=== PATIENT | male | born 1975 | race American Indian/Alaskan Native ===

== ENCOUNTER 2017-08-01 13:03 | Emergency (ER) | payer OTHER ==
[2017-08-01 13:08] VITALS: BP 160/102
[2017-08-01] MEDS ORDERED: MOTRIN ONE (13:23)
--- NOTE | 2017-08-01 13:23 | Emergency Department Report ---
ED Back Pain/Injury HPI - General Chief Complaint: Back Pain/Injury Stated Complaint: LEFT LOWER BACK/LEG PAIN Time Seen by Provider: 08/01/17 13:17 Source: patient Limitations: No Limitations - History of Present Illness Complaint: back pain, back injury -: week(s) (3 weeks) Similar Symptoms Previously: Yes Place: work Radiation: none Severity: moderate Improves With: immobilization Worsens With: movement Context: while lifting Associated Symptoms: denies: weakness, chest pain, numbness, difficulty walking , cough, incontinence, fever/chills, nausea/vomiting - Related Data Previous Rx's Medication Instructions Recorded Last Taken Type Acetaminophen/Codeine [Tylenol #3] 1 tab PO Q6H PRN #15 tab 01/31/15 Unknown Rx Amoxicillin [Trimox CAP] 500 mg PO Q8H #30 capsule 01/31/15 Unknown Rx Hydrochlorothiazide [HCTZ] 25 mg PO QDAY #30 tablet 08/01/17 Unknown Rx Ketorolac [Toradol] 10 mg PO Q6H PRN #20 tablet 08/01/17 Unknown Rx Metaxalone [Skelaxin] 800 mg PO TID #30 tablet 08/01/17 Unknown Rx Allergies Allergy/AdvReac Type Severity Reaction Status Date / Time No Known Allergies Allergy Unverified 01/31/15 06:02 ED Review of Systems ROS: Stated complaint: LEFT LOWER BACK/LEG PAIN Other details as noted in HPI Comment: All other systems reviewed and negative Constitutional: denies: chills, fever Respiratory: denies: cough Cardiovascular: denies: chest pain, palpitations Gastrointestinal: denies: abdominal pain, nausea, vomiting ED Past Medical Hx - Past Medical History Previous Medical History?: Yes Additional medical history: recurrent back pain - Surgical History Past Surgical History?: No - Social History Smoking Status: Current Every Day Smoker Substance Use Type: None - Medications Home Medications: Home Medications Medication Instructions Recorded Confirmed Last Taken Type Acetaminophen/Codeine [Tylenol #3] 1 tab PO Q6H PRN #15 tab 01/31/15 Unknown Rx Amoxicillin [Trimox CAP] 500 mg PO Q8H #30 capsule 01/31/15 Unknown Rx Hydrochlorothiazide [HCTZ] 25 mg PO QDAY #30 tablet 08/01/17 Unknown Rx Ketorolac [Toradol] 10 mg PO Q6H PRN #20 tablet 08/01/17 Unknown Rx Metaxalone [Skelaxin] 800 mg PO TID #30 tablet 08/01/17 Unknown Rx ED Physical Exam - General Limitations: No Limitations General appearance: alert, in no apparent distress - Head Head exam: Present: atraumatic, normocephalic, normal inspection - Eye Eye exam: Present: normal appearance, PERRL - ENT ENT exam: Present: normal exam, normal orophraynx, mucous membranes moist - Neck Neck exam: Present: normal inspection, full ROM. Absent: meningismus, lymphadenopathy - Respiratory Respiratory exam: Present: normal lung sounds bilaterally. Absent: respiratory distress, wheezes, rales, rhonchi, stridor, chest wall tenderness, accessory muscle use, decreased breath sounds, prolonged expiratory - Cardiovascular Cardiovascular Exam: Present: regular rate, normal rhythm, normal heart sounds - GI/Abdominal GI/Abdominal exam: Present: soft. Absent: distended, tenderness, guarding - Extremities Exam Extremities exam: Present: normal inspection, full ROM, normal capillary refill - Back Exam Back exam: Present: normal inspection, full ROM, muscle spasm. Absent: tenderness, CVA tenderness (R), CVA tenderness (L), paraspinal tenderness, vertebral tenderness, rash noted - Neurological Exam Neurological exam: Present: alert, oriented X3, CN II-XII intact, normal gait - Skin Skin exam: Present: warm, intact, normal color ED Course Vital Signs 08/01/17 13:07 Temperature 98.2 F Pulse Rate 103 H Respiratory 18 Rate Blood Pressure 160/102 O2 Sat by Pulse 99 Oximetry ED Medical Decision Making - Radiology Data Radiology results: image reviewed interpreted by me: Lumbosacral x-ray did not show any acute finding. Critical care attestation.: If time is entered above; I have spent that time in minutes in the direct care of this critically ill patient, excluding procedure time. ED Disposition Clinical Impression: Back pain, Lumbar radiculopathy, Hypertension Disposition: TO HOME OR SELFCARE Is pt being admited?: No Condition: Stable Instructions: Acute Low Back Pain (ED), Lumbar Radiculopathy (ED), Hypertension (ED) Prescriptions: Hydrochlorothiazide [HCTZ] 25 mg PO QDAY #30 tablet Ketorolac [Toradol] 10 mg PO Q6H PRN #20 tablet PRN Reason: Pain Metaxalone [Skelaxin] 800 mg PO TID #30 tablet Referrals: PRIMARY CARE, [Primary Care Provider] - 3-5 Days
[2017-08-01] MEDS ORDERED: MOTRIN PO ONE (13:25)
[2017-08-01] MEDS ORDERED: TORADOL PO ONE (14:00)
--- NOTE | 2017-08-01 15:47 | XRay Report ---
FINAL REPORT PROCEDURE: XR SPINE LUMBOSACRAL 2-3V TECHNIQUE: Lumbosacral spine, 3 views HISTORY: BACK INJURY/ BACK PAIN COMPARISON: No prior studies are available for comparison. FINDINGS: No scoliosis. Vertebral body heights and alignment are maintained. Disc spaces are preserved. IMPRESSION: No acute osseous abnormality is seen
== END 2017-08-01 15:32 | disposition home or self-care (01) ==
LOC: ED 13:03
DX: M54.16 Radiculopathy, lumbar region (principal); I10 Essential (primary) hypertension; F17.200 Nicotine dependence, unspecified, uncomplicated
CPT/HCPCS: 72100